=== PATIENT | female | born 1970 | race Caucasian/White ===

== ENCOUNTER 2022-08-27 08:19 | Inpatient (IN) ==
[2022-08-27] MEDS ORDERED: PROCHLORPERAZINE 1 ML IV ONE (08:35)
[2022-08-27] MEDS ORDERED: ALBUT/IPRATROP 3MG/0.5MG NEB 3 ML VIAL NEB ONE (08:35)
[2022-08-27] MEDS ORDERED: ACETAMINOPHEN 1,000 MG/100 ML VIAL IV STA (08:35)
[2022-08-27] MEDS ORDERED: dexAMETHasone**PF** 10 MG/ML VIAL IV ONE (08:35)
[2022-08-27] MEDS ORDERED: SODIUM CHLORIDE 0.9% 500 ML IV ONE (08:35)
[2022-08-27] MEDS ORDERED: diphenhydrAMINE 50 MG/ML VIAL IV STA (08:35)
--- NOTE | 2022-08-27 08:41 | Emergency Department Note ---
Impression & Plan Acute respiratory failure with hypoxia, Migraine ED Provider Note Name: YAS DAUGHERTY Age: 51 Sex: F Arrives Via: Walk-In Informant: Patient ED Provider: Joaquin Michaels MD Chief Complaint: Shortness of breath Impression: As per impressions above Medical Decision Makin-year-old female with a long history of COPD migraine issues arrives for evaluation of worsening shortness of breath over the last few days. She notes increasing migraine over the last 24 hours. Also notes diffuse body pains aches and back pain. On arrival patient is uncomfortable, a bit confused and in significant respiratory distress. She is satting 72% appears quite unwell. She was given a prolonged nebulizer along with IV steroids and was well as some medications for her headache and nausea. Breathing is much improved though after taking off oxygen her sats started dropping again into the 80s. Her work- up otherwise is benign without any clear evidence of sepsis or lobar infiltrate. In the setting of COPD exacerbation with hypoxia she was given some IV antibiotics. She is a bit on the somnolent side but is protecting airway and still continues to complain of backache and headaches. In the setting of her hypoxia and respiratory issues she clearly will need to come in her hospitalization. Patient is agreeable to this and so was patient's family. Symptoms are not consistent with intracranial pathology and she has no evidence of PE or dissection at this time. Given her history of similar I do not think further work-up emergently is required. Prior Medical Record and Triage/Nursing Notes reviewed by Me Additional history obtained from chart and family at bedside Differentials:Infection, dehydration, metabolic abnormality, hypo/hyperglycemia, electrolyte disturbance, anemia, hypoxia, cardiac sources, intracerebral event, toxicologic, neurologic, as well as other pathologies. Vital Signs: reviewed and remarkable for hypoxia Interventions: Decadron IV, Toradol IV, acetaminophen IV, Compazine IV, Phenergan IV, doxycycline IV, normal saline bolus, hour-long DuoNeb Labs:Reviewed and remarkable for no significant abnormalities Imagin view chest x-ray no acute findings EKG:Per My Interpretation: Indication hypoxia: NSR 66 bpm, qtc 429. No Ectopy. No Ischemia. Compared to EKG 04/28/22, no significant changes. Cardiac/Tele Monitoring: Cardiac Monitoring: An Order was placed for continuous cardiac monitoring. The monitor shows a rate of 60 with a normal sinus rhythm. Consults:[facility] Hospitalist Plan: Disposition:Hospitalization. Condition: Good History of Present Illness:51-year-old female arrives for evaluation of headache. Patient with worsening confusion since yesterday. Associated with shortness of breath, wheezing, fatigue. She has been more sleepy over the last 24 hours. She notes she had a worsening headache this morning. She relates this is because she did not have her typical Oxy IR this morning. She denies any falls, trauma, injuries. She is not had any fevers, but is having some chills. She notes her shortness of breath is typical for an asthma flare most recently happened about 6 months ago. Nothing makes better or worse. No medications prior to arrival other than Oxy IR yesterday. Patient denies any actual abdominal pain but notes she is very nauseous. No acute back pain, leg p ain, calf swelling, urinary/bowel symptoms, syncope, neurologic deficits or other concerning signs or symptoms. Any exertion makes worse. Rest makes better. ROS: See above HPI for pertinent positives & negatives. A total of 10 systems reviewed and were otherwise negative. Past Medical History:Asthma, GERD, fibromyalgia, chronic pain, migraines, hypertension Past Surgical History:No previous surgeries Family History:Mother had hypertension Social History:Smoker, lives with family Home Medications:See Below Allergies:novacain Vitals:Blood Pressure: 164/91, Pulse 76, RR 18, T 36.5C, O2 79% on RA Physical Exam: GENERAL: Patient is uncomfortable appearing and in moderate distress. EYES: No scleral icterus, unremarkable pupils. ENT: Mucous membranes moist, no nasal congestion. NECK: No masses appreciated, nomeningismus, trachea is midline. RESPIRATORY: Mild tachypnea with diffuse rhonchi and wheezing throughout all lung hutson. CARDIOVASCULAR: Regular rate and rhythm.No murmurs, rubs, gallops appreciated. GASTROINTESTINAL: Abdomen soft, non-tender, no peritonitis.Bowel sounds positive.No masses appreciated. BACK: No midline tenderness, no CVA tenderness EXTREMITIES: Normal motion all extremities, no cyanosis, no edema. NEUROLOGIC: Somnolent, answering questions with single word answers, no acute motor or sensory deficits, no focal weakness, cranial nerves grossly intact. SKIN: No rash, no jaundice, no diaphoresis. PSYCH: Appropriate GCS: 14 ED Course: Times/Reassessments: breathing improved and patient appears much more comfortable though sats continue to fall in to 80s Joaquin Michaels MD Past Med/Surg History Medical History (Updated 08/27/22 @ 19:20 by Elsy Alvarado PA-C) Chronic pain disorder COPD (chronic obstructive pulmonary disease) Depression Erythrocytosis Fibromyalgia GERD (gastroesophageal reflux disease) History of migraine HTN (hypertension) Tobacco abuse Surgical History (Updated 08/27/22 @ 13:46 by Elsy Alvarado PA-C) History of biopsy biopsy left upper arm - 03/2017 excision tumor left upper arm - 10/29/2017. Dr Griffiths at [facility] Family History (Updated 08/27/22 @ 13:47 by Elsy Alvarado PA-C) Mother Hypertension Father High cholesterol Social History (Updated 08/27/22 @ 13:48 by Elsy Alvarado PA-C) Smoking Status: Current every day smoker Tobacco Type: Cigarettes Cigarettes Per Day: 1ppd; Second Hand Exposure: No; Do You Dip or Chew Tobacco: No; Hx Alcohol Use: Yes Alcohol type: wine Alcohol Intake Frequency: Monthly or Less Hx Substance Use: Yes Prescribed Medications: Painkillers Prescribed Medications Comment: OxyContin, oxycodone Last Used Substance: Unknown Substance Use Type Other:: medical Preferred Language: Telugu Communication Ability: Effective Codifier Required: No Beliefs That Will Affect Care: Moravian Current Living Situation: Family Other Information That Helps Us Care for You: No Feels Safe at Home: Yes Safety Concerns: Feels Safe At This Time Assistive Devices: Glasses and Oxygen - Continuous Allergies Allergies Allergy/AdvReac Type Severity Reaction Status Date / Time procaine [From Novocain] Allergy Severe FACE & Verified 04/28/22 16:43 THROAT SWELLED Home Meds Home Medications Medication Instructions Recorded Confirmed amlodipine 5 mg tablet 5 mg PO DAILY 04/28/22 08/27/22 duloxetine 60 mg capsule,delayed 120 mg PO DAILY 04/28/22 08/27/22 release galcanezumab-gnlm 120 mg/mL 120 mg subcut MONTHLY 04/28/22 08/27/22 subcutaneous pen injector (Emgality Pen) montelukast 10 mg tablet 10 mg PO HS 04/28/22 08/27/22 (Singulair) omeprazole 40 mg capsule,delayed 40 mg PO DAILY 04/28/22 08/27/22 release oxycodone 30 mg tablet 30 mg PO BID PRN Breakthrough Pain 04/28/22 08/27/22 pregabalin 75 mg capsule 75 mg PO TID 04/28/22 08/27/22 propranolol 120 mg capsule,24 120 mg PO DAILY 04/28/22 08/27/22 hr,extended release sumatriptan succinate 100 mg tablet 100 mg PO UD PRN Headache 04/28/22 08/27/22 valacyclovir 1 gram tablet 1,000 mg PO UD 04/28/22 08/27/22 ipratropium 20 mcg-albuterol 100 2 puff inhalation Q6H PRN 08/27/22 08/27/22 mcg/actuation mist for inhalation Shortness Of Breath Or Wheezing (Combivent Respimat) oxycodone 60 mg tablet,crush 60 mg PO BID 08/27/22 08/27/22 resistant,extended release 12 hr (OxyContin) Previous Rx's Medication Instructions Recorded ondansetron 4 mg disintegrating 4 mg PO Q6H PRN nausea and 04/28/22 tablet vomiting #14 tabs Results & Data (ED) Vital Signs Vital Signs - 24 hr 08/27/22 08:22 08/27/22 08:19 08/27/22 08:35 Temperature 36.5 C Temperature Source Temporal Artery Scan Pulse Rate 76 Pulse Rate [Finger] 74 Pulse Rate from SpO2 Sensor Respiratory Rate 18 24 Respiratory Effort / Characteristics Non-Labored Spontaneous Respiratory Depth Normal Respiratory Pattern Regular Blood Pressure 164/91 H Blood Pressure [Right Arm] 186/105 H Blood Pressure Mean 115 Blood Pressure Mean [Right Arm] 132 Blood Pressure Position [Right Arm] Sitting Pulse Oximetry 79 L 95 95 Oxygen Delivery Method Room Air Oxymask Oxymask Oxygen Flow Rate 6 6 Sepsis Recent Fever Within 48 Hours No Sepsis New/Unexplained Change in Mental Status No Sepsis Action Taken by Nursing No Action Required 08/27/22 10:02 08/27/22 10:40 08/27/22 10:40 Temperature Temperature Source Pulse Rate 73 84 81 Pulse Rate [Finger] Pulse Rate from SpO2 Sensor 80 Respiratory Rate 24 23 13 Respiratory Effort / Characteristics Respiratory Depth Respiratory Pattern Blood Pressure 161/109 H 162/92 H Blood Pressure [Right Arm] Blood Pressure Mean 126 115 Blood Pressure Mean [Right Arm] Blood Pressure Position [Right Arm] Pulse Oximetry 92 95 96 Oxygen Delivery Method Oxymask Oxymask Oxymask Oxygen Flow Rate 6 6 6 Sepsis Recent Fever Within 48 Hours Sepsis New/Unexplained Change in Mental Status Sepsis Action Taken by Nursing 08/27/22 11:00 08/27/22 11:00 08/27/22 11:40 Temperature Temperature Source Pulse Rate 77 73 75 Pulse Rate [Finger] Pulse Rate from SpO2 Sensor 74 76 Respiratory Rate 22 22 25 H Respiratory Effort / Characteristics Respiratory Depth Respiratory Pattern Blood Pressure 166/91 H 166/91 H 166/99 H Blood Pressure [Right Arm] Blood Pressure Mean 116 116 121 Blood Pressure Mean [Right Arm] Blood Pressure Position [Right Arm] Pulse Oximetry 95 93 90 Oxygen Delivery Method Oxymask Oxymask Oxymask Oxygen Flow Rate 6 6 6 Sepsis Recent Fever Within 48 Hours Sepsis New/Unexplained Change in Mental Status Sepsis Action Taken by Nursing 08/27/22 12:00 08/27/22 12:30 Temperature Temperature Source Pulse Rate 81 75 Pulse Rate [Finger] Pulse Rate from SpO2 Sensor Respiratory Rate 24 24 Respiratory Effort / Characteristics Respiratory Depth Respiratory Pattern Blood Pressure 171/98 H 159/99 H Blood Pressure [Right Arm] Blood Pressure Mean 122 119 Blood Pressure Mean [Right Arm] Blood Pressure Position [Right Arm] Pulse Oximetry 91 92 Oxygen Delivery Method Oxymask Oxymask Oxygen Flow Rate 6 6 Sepsis Recent Fever Within 48 Hours Sepsis New/Unexplained Change in Mental Status Sepsis Action Taken by Nursing Laboratory Data Result diagrams: 08/28/22 03:57 08/28/22 03:57 Lab Results 08/27/22 08/27/22 08/27/22 Range/Units 08:40 08:40 08:40 WBC 11.59 H (4.8-10.8) K/ul RBC 5.51 H (3.93-5.22) M/uL Hgb 19.5 H (12.0-16.0) g/dl Hct 58.9 H (34.1-44.9) % MCV 106.9 H (80.0-100.0) fL MCH 35.4 H (25.0-34.0) pg MCHC 33.1 (32.0-36.0) g/dL RDW Std Deviation 55.7 H (36.4-46.3) fL RDW Coeff of Devora 13.8 (11.5-14.5) % Plt Count 195 (130-400) K/uL MPV 10.7 (9.4-12.3) fL Immature Gran % (Auto) 0.3 % Neut % (Auto) 80.1 % Lymph % (Auto) 11.6 % [place] % (Auto) 7.2 % Eos % (Auto) 0.3 % Baso % (Auto) 0.5 % Neut # (Auto) 9.28 H (1.4-6.5) K/uL Lymph # (Auto) 1.34 (1.2-3.4) K/uL [place] # (Auto) 0.83 H (0.24-0.82) K/uL Eos # (Auto) 0.04 (0-0.50) K/uL Baso # (Auto) 0.06 (0-0.2) K/uL Immature Gran # (Auto) 0.04 H (0.00-0.02) K/uL Sodium 142 (136-145) mmol/L Potassium 4.0 (3.5-5.1) mmol/L Chloride 101 (98-107) mmol/L Carbon Dioxide 31 (21-32) mmol/L Anion Gap 10 (3-11) BUN 14 (6-23) mg/dl Creatinine 0.58 L (0.6-1.2) mg/dl Est Cr Clr Drug Dosing 113.7 ml/min Est GFR ( Amer) 123.7 ml/min Est GFR (Non-Af Amer) 106.7 ml/min BUN/Creatinine Ratio 24.1 H (10-20) Glucose 128 H (70-99(Fasting)) mg/dl Lactate 1.2 (0.4-2.0) mmol/L Calcium 9.4 (8.5-10.1) mg/dl Magnesium 1.9 (1.7-2.4) mg/dl Total Bilirubin 1.3 H (0.2-1.0) mg/dl Direct Bilirubin 0.3 H (0-0.2) mg/dl AST 17 (13-39) U/L ALT 13 (7-52) U/L Alkaline Phosphatase 67 (34-104) U/L Troponin I High Sens 10.3 D (0-14) pg/ml B-Natriuretic Peptide (0-100) pg/ml Total Protein 6.8 (6.0-8.3) gm/dl Albumin 4.3 (3.4-5.0) gm/dl Procalcitonin (0-0.5) ng/ml SARS-CoV-2 (PCR) (Negative) Influenza Type A (PCR) (Neg) Influenza Type B (PCR) (Neg) RSV (RT-PCR) (Neg) 08/27/22 08/27/22 08/27/22 Range/Units 08:40 08:40 09:00 WBC (4.8-10.8) K/ul RBC (3.93-5.22) M/uL Hgb (12.0-16.0) g/dl Hct (34.1-44.9) % MCV (80.0-100.0) fL MCH (25.0-34.0) pg MCHC (32.0-36.0) g/dL RDW Std Deviation (36.4-46.3) fL RDW Coeff of Devora (11.5-14.5) % Plt Count (130-400) K/uL MPV (9.4-12.3) fL Immature Gran % (Auto) % Neut % (Auto) % Lymph % (Auto) % [place] % (Auto) % Eos % (Auto) % Baso % (Auto) % Neut # (Auto) (1.4-6.5) K/uL Lymph # (Auto) (1.2-3.4) K/uL [place] # (Auto) (0.24-0.82) K/uL Eos # (Auto) (0-0.50) K/uL Baso # (Auto) (0-0.2) K/uL Immature Gran # (Auto) (0.00-0.02) K/uL Sodium (136-145) mmol/L Potassium (3.5-5.1) mmol/L Chloride (98-107) mmol/L Carbon Dioxide (21-32) mmol/L Anion Gap (3-11) BUN (6-23) mg/dl Creatinine (0.6-1.2) mg/dl Est Cr Clr Drug Dosing ml/min Est GFR ( Amer) ml/min Est GFR (Non-Af Amer) ml/min BUN/Creatinine Ratio (10-20) Glucose (70-99(Fasting)) mg/dl Lactate (0.4-2.0) mmol/L Calcium (8.5-10.1) mg/dl Magnesium (1.7-2.4) mg/dl Total Bilirubin (0.2-1.0) mg/dl Direct Bilirubin (0-0.2) mg/dl AST (13-39) U/L ALT (7-52) U/L Alkaline Phosphatase (34-104) U/L Troponin I High Sens (0-14) pg/ml B-Natriuretic Peptide 754 H (0-100) pg/ml Total Protein (6.0-8.3) gm/dl Albumin (3.4-5.0) gm/dl Procalcitonin < 0.05 (0-0.5) ng/ml SARS-CoV-2 (PCR) NEGATIVE (Negative) Influenza Type A (PCR) Negative (Neg) Influenza Type B (PCR) Negative (Neg) RSV (RT-PCR) Negative (Neg) Administered Medications Albuterol (Albut/Ipratrop 3mg/0.5mg Neb 3 Ml Vial) 3 ml NEB QIDR [facility]; Protocol Stop: 09/26/22 15:24 Last Admin: 08/27/22 19:35 Dose: 3 ml Documented By: Admin: 08/27/22 16:18 Dose: 3 ml Documented By: [facility] Amlodipine Besylate (Amlodipine Besylate 5 Mg Tab) 5 mg PO DAILY [facility] Stop: 09/26/22 15:24 Last Admin: 08/27/22 16:07 Dose: 5 mg Documented By: [facility] Docusate Sodium (Docusate Sodium 100 Mg Cap) 100 mg PO BID [facility] Stop: 09/26/22 20:59 Last Admin: 08/27/22 21:32 Dose: Not Given Documented By: [facility] Doxycycline Hyclate (Doxycycline Hyclate 100 Mg Cap) 100 mg PO BID [facility] Stop: 09/03/22 20:59 Last Admin: 08/27/22 21:30 Dose: 100 mg Documented By: [facility] Enoxaparin Sodium (Enoxaparin Inj 40 Mg/0.4 Ml Syr) 40 mg SQ Q24H [facility] Stop: 09/26/22 20:59 Last Admin: 08/27/22 21:30 Dose: 40 mg Documented By: [facility] Methylprednisolone 40 mg/ (Syringe) 0.64 mls @ 1.5 mls/min IV Q12H SAM Stop: 09/26/22 20:59 Last Admin: 08/27/22 21:29 Dose: 1.5 mls/min Documented By: LISA Montelukast Sodium (Montelukast Sodium 10 Mg Tablet) 10 mg PO HS SAM Stop: 09/26/22 20:59 Last Admin: 08/27/22 21:31 Dose: 10 mg Documented By: LISA Nicotine (Nicotine 21 Mg/24 Hr Tdsy) 21 mg TD QAM SAM Stop: 09/26/22 15:24 Last Admin: 08/27/22 16:04 Dose: 21 mg Documented By: MARYSOL Oxycodone HCl (Oxycodone Hcl 15 Mg Tabcr (Oxycontin)) 15 mg PO BID SAM Stop: 09/10/22 20:59 Last Admin: 08/27/22 21:38 Dose: 15 mg Documented By: LISA Pregabalin (Pregabalin 75 Mg Cap) 75 mg PO TID SAM Stop: 09/26/22 15:24 Last Admin: 08/27/22 21:35 Dose: 75 mg Documented By: Admin: 08/27/22 16:18 Dose: 75 mg Documented By: MARYSOL Propranolol HCl (Propranolol Hcl 60 Mg [place]) 120 mg PO DAILY SAM Stop: 09/26/22 15:24 Last Admin: 08/27/22 16:05 Dose: 120 mg Documented By: MARYSOL Discontinued Medications Albuterol (Albut/Ipratrop 3mg/0.5mg Neb 3 Ml Vial) 12 ml NEB ONE ONE; Protocol Stop: 08/27/22 08:36 Last Admin: 08/27/22 08:50 Dose: 12 ml Documented By: LYNNETTE Dexamethasone Sodium Phosphate (DexamethasonePf 10 Mg/Ml Vial) 10 mg IV NOW ONE Stop: 08/27/22 08:36 Last Admin: 08/27/22 08:49 Dose: 10 mg Documented By: LYNNETTE Diphenhydramine HCl (Diphenhydramine 50 Mg/Ml Vial) 50 mg IV NOW STA Stop: 08/27/22 08:36 Last Admin: 08/27/22 08:49 Dose: 50 mg Documented By: [facility] Hydromorphone HCl (Hydromorphone Inj 0.5 Mg/0.5 Ml Syr) 0.5 mg IV NOW STA Stop: 08/27/22 11:33 Last Admin: 08/27/22 12:20 Dose: Not Given Documented By: HERMILA Sodium Chloride (Nss) 500 mls @ 999 mls/hr IV .Q31M ONE Stop: 08/27/22 09:05 Last Infusion: 08/27/22 09:21 Dose: 0 mls/hr Documented By: Admin: 08/27/22 08:50 Dose: 999 mls/hr Documented By: MARYSOL Acetaminophen (Ofirmev) 1,000 mg in 100 mls @ 400 mls/hr IV NOW STA Stop: 08/27/22 08:49 Last Infusion: 08/27/22 09:06 Dose: 0 mls/hr Documented By: Admin: 08/27/22 08:51 Dose: 400 mls/hr Documented By: MARYSOL Prochlorperazine (Compazine) 1 mls @ 1 mls/min IV ONE ONE Stop: 08/27/22 08:36 Last Admin: 08/27/22 08:49 Dose: 1 mls/min Documented By: MARYSOL Promethazine HCl (Phenergan) 25 mg in 51 mls @ 204 mls/hr IV NOW STA Stop: 08/27/22 10:37 Last Infusion: 08/27/22 11:02 Dose: 0 mls/hr Documented By: Admin: 08/27/22 10:38 Dose: 204 mls/hr Documented By: HERMILA Doxycycline Hyclate 100 mg/ (Dextrose) 110 mls @ 50 mls/hr IV NOW STA Stop: 08/27/22 13:43 Last Infusion: 08/27/22 14:16 Dose: 0 mls/hr Documented By: Admin: 08/27/22 11:53 Dose: 50 mls/hr Documented By: MARYSOL Discharge Plan Visit Data Chief Complaint: Headache Stated Complaint: HEADACHE ED Provider: Joaquin Michaels Discharge Problem: Acute respiratory failure with hypoxia, Migraine Patient Disposition: Admitted As Inpatient Discharge Instructions Interventions: ED Discharge Assessment Last Done: 08/27/22 15:24 : Migraine Qualifiers: Migraine type: other Status migrainosus presence: without status migrainosus Intractability: not intractable Qualified Code(s): G43.809 - Other migraine, not intractable, without status migrainosus
[2022-08-27 08:54] LABS: Basophils # (auto) 0.06 K/uL (0-0.2); Basophils % (auto) 0.5 %; Eosinophils # (auto) 0.04 K/uL (0-0.50); Eosinophils % (auto) 0.3 %; Hematocrit (blood only) 58.9 % (34.1-44.9); Hemoglobin 19.5 g/dl (12.0-16.0); Immature Granulocytes # (auto) 0.04 K/uL (0.00-0.02); Immature Granulocytes % (auto) 0.3 %; Lymphocytes # (auto) 1.34 K/uL (1.2-3.4); Lymphocytes % (auto) 11.6 %; Mean Corpuscular Hemoglobin 35.4 pg (25.0-34.0); Mean Corpuscular Hgb Conc 33.1 g/dL (32.0-36.0); Mean Corpuscular Volume 106.9 fL (80.0-100.0); Mean Platelet Volume 10.7 fL (9.4-12.3); Monocytes # (auto) 0.83 K/uL (0.24-0.82); Monocytes % (auto) 7.2 %; Neutrophils # (auto) 9.28 K/uL (1.4-6.5); Neutrophils % (auto) 80.1 %; Platelet Count 195 K/uL (130-400); RDW Coefficient of Variation 13.8 % (11.5-14.5); RDW Standard Deviation 55.7 fL (36.4-46.3); Red Blood Count 5.51 M/uL (3.93-5.22); White Blood Count 11.59 K/ul (4.8-10.8)
--- NOTE | 2022-08-27 09:21 | XRay Report ---
SINGLE VIEW CHEST CLINICAL HISTORY: Cough. Sepsis. FINDINGS: An AP, portable, upright chest radiograph is compared to chest x-ray and chest CT dated 04/05. The cardiomediastinal silhouette is top normal for projection. Emphysema and chronic intersti tial thickening is similar to previous. There are mild bibasilar airspace opacities. No pleural effus ion or pneumothorax is seen. The bony thorax is grossly intact. Fusion hardware is seen in the lower cervical spine. IMPRESSION: 1. Emphysema. 2. Mild bibasilar airspace opacities could represent atelectasis versus a mild infectious/inflammator y pneumonitis. Clinical correlation will be required ACT 112: Negative or not required by law. Electronically signed by: Colby Jenkins M.D. 08/27/2022 9:20 AM
[2022-08-27 09:24] LABS: Troponin I High Sensitivity 10.3 pg/ml (0-14)
[2022-08-27 09:35] LABS: Influenza A virus by PCR Negative (Neg); Influenza B virus by PCR Negative (Neg); RSV by PCR Negative (Neg); SARS CoV2 RNA(COVID-19) Ceph NEGATIVE (Negative)
[2022-08-27 09:45] LABS: Albumin Level 4.3 gm/dl (3.4-5.0); BUN Creatinine Ratio 24.1 (10-20); Bilirubin Direct 0.3 mg/dl (0-0.2); Bilirubin,Total 1.3 mg/dl (0.2-1.0); Calcium 9.4 mg/dl (8.5-10.1); Creatinine Clr Calc Pharmacy 113.7 ml/min; Est GFR (African American) 123.7 ml/min; Est GFR (Non-African American) 106.7 ml/min; Magnesium 1.9 mg/dl (1.7-2.4); Total Protein 6.8 gm/dl (6.0-8.3)
[2022-08-27] MEDS ORDERED: PROMETHAZINE 25 MG/51 ML BAG IV STA (10:23)
[2022-08-27] MEDS ORDERED: DOXYCYCLINE HYCLATE 100 MG in DEXTROSE 5% 100 ML IV STA (11:32)
[2022-08-27] MEDS ORDERED: HYDROmorphone INJ 0.5 MG/0.5 ML SYR IV STA (11:32)
--- NOTE | 2022-08-27 12:32 | History & Physical Report ---
Date of Service August 27, 2022 Assessment & Plan (1) Headache: (2) Migraine: Plan: Patient is 51-year-old female with PMH fibromyalgia, chronic pain syndrome, migraine GONZÁLES, tobacco abuse, erythrocytosis, HTN, depression, GERD presented to ER with c/o GONZÁLES x 1 day with photophobia, phonophobia, N/V, diplopia. Took ibuprofen and imitrex without relief. In ER given ER IV Tylenol, Compazine, Benadryl, Phenergan, Dilaudid Patient reports continued headache. Is noted to have confusion CT head negative Can have additional dose Imitrex. Start Toradol prn Hold home OxyContin with current confusion. Decrease home dose of oxycodone from 30 to 15mg BID and monitor If no improvement consider neurology consult (3) Hypoxia: (4) COPD exacerbation: Plan: In ER patient found to be hypoxic on room air at 79%. Increased to 95% on 6L oxymask Reports chronic white productive cough without worsening. Reports SOB x 1 day. Denies CP WBC: 11.5, Lactate WNL, negative procalcitonin. Negative Covid-19, influenza and RSV PCR. CXR: Emphysema. Mild bibasilar airspace opacities could represent atelectasis versus a mild infectious/inflammatory pneumonitis. Clinical correlation will be required In ER given dexamethasone 10mg IV, doxycycline IV, albuterol neb Obtain ABG Of note - pt hypoxic in ER visit in 04/2022. Suspect chronic respiratory failure Supplemental oxygen as needed goal 89-90% Duonebs Doxycycline po incentive spirometry Continue home montelukast (5) Abnormal EKG: Plan: EKG inverted T waves septal, V3. Q waves septal and inferior that were seen on prior EKG Denies CP. High sensitivity Troponin: 10 Trend troponin EKG in am (6) HTN (hypertension): Plan: Continue amlodipine, propranolol (7) Chronic pain disorder: (8) Fibromyalgia: Plan: PDMP reviewed. oxycodone 30 mg tablets quantity 60 filled on 08/19/2022. OxyContin ER 60 mg Quantity 60 filled on 08/25/2022. Pregabalin 75 mg capsules. Quantity 90. Filled on 08/22/2022. Urine drug screen +opiates, +marijuana Hold home OxyContin currently with confusion Decrease dose of home oxycodone from 30mg to 15mg BID with current confusion (9) Depression: Plan: Continue duloxetine (10) GERD (gastroesophageal reflux disease): Plan: Continue PPI (11) Tobacco abuse: Plan: Smoking cessation encouraged Nicotine patch (12) Erythrocytosis: Plan: Following with [facility]. Negative gen panel so polycythemia vera unlikely Was to have sleep study to R/O ALEKSANDR. Has not had completed yet DVT Prophylaxis Lovenox SQ Full Code as per discussion with pt Follows with Dr Angelica Green in [place] for routine care Pt was seen and care coordinated with Dr Auguste. See addendum Admission and Anticipated Discharge Date Admission Date: Patient is a 51-year-old female with history of migraine, fibromyalgia and other medical problems presents with history of headache, photophobia, phonophobia, nausea. She states having diplopia with migraine attacks. She tried ibuprofen, Imitrex without much relief. Patient was also noted to be confused by family member and feels short of breath for 1 day duration. Reports chronic cough which she attributes to smoking. She is on chronic narcotics. Please review HPI for complete details of presentation. She was found to be hypoxic while in ED. Blood work showed leukocytosis 11.5, hemoglobin 19.5, hematocrit 58.9 platelet count 195. BMP within normal limit. Troponins normal. BNP 754. Procalcitonin normal. Tox screen positive for opiates, marijuana. COVID, RSV, influenza screen negative. Chest x-ray showed findings suggestive of emphysema, mild bibasilar airspace opacities.CT head showed no acute intracranial abnormality. Blood cultures pending. EKG showed normal sinus rhythm, T wave inversion in V2, V3. QTc 429. On exam patient is moderately built and nourished, no apparent distress, normocephalic/atraumatic, EOMI, diminished breath sounds, clear to auscultation, S1-S2, no murmur, no pedal edema, abdomen soft, nontender, normal bowel sounds, alert, awake, lethargic, grossly no focal deficits. Patient is admitted for management of migraine, acute respiratory failures with hypoxia, hypercarbia. Likely COPD exacerbation. Narcotics likely contributing to respiratory status. Will treat COPD exacerbation and minimize narcotic use as able. Trend cardiac enzymes and repeat EKG to assess for any ACS--less likely. Continue treatment for migraine as above. 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 I personally reviewed the record. Patient is interviewed and examined at bedside. Patient's care is coordinated with Elsy Alvarado PA-C. Please refer to the documentation above for details of patient's presentation and for discussion of other issues. History of Present Illness Chief Complaint: GONZÁLES Primary Care Provider: Dr Angelica Green Patient is 51-year-old female with PMH fibromyalgia, chronic pain syndrome, migraine GONZÁLES, tobacco abuse, erythrocytosis, HTN, depression, GERD presented to ER with c/o GONZÁLES. History obtained from patient, patient's daughter, and chart review. Patient states that GONZÁLES started last night. Describes as occipital region with associated photophobia, phonophobia, nausea and dry heaving. Also c/o diplopia which is normal when she has GONZÁLES's. She feels like this is like her prior GONZÁLES's. Also states feels generalized weakness. Tried ibuprofen, Imitrex this morning without relief and can to ER. Patients daughter states she seems confused today. Reports feeling SOB x 1 day. Chronic cough, sometimes productive white sputum without recent worsening. Reports feels cold but denies known fever. Denies chest pain. On chronic OxyContin and oxycodone. Daughter does not believe patient had narcotics today, but thinks took yesterday. Patient states ran out of oxycodone, however patient's daughter states she thought someone picked it up from the pharmacy for patient. Patient states she is having a hard time remembering. Denies fever/chills, diaphoresis, hemoptysis, hematemesis, constipation, diarrhea, syncope, vision loss, neck pain, orthopnea, palpitations, sore throat, choking, otalgia, rhinorrhea, abdominal pain, pa resthesias, extremity edema, rashes, urinary symptoms. Denies other drug use. PDMP reviewed. oxycodone 30 mg tablets quantity 60 filled on 08/19/2022. OxyContin ER 60 mg Quantity 60 filled on 08/25/2022. Pregabalin 75 mg capsules. Quantity 90. Filled on 08/22/2022. Oxycodone 30 mg tab quantity 60 filled on 08/19/2022. OxyContin ER 60 mg tablet. Quantity 11 filled on 08/14/2022 and 08/07/2022. Allergies Allergy/AdvReac Type Severity Reaction Status Date / Time procaine [From Novocain] Allergy Severe FACE & Verified 04/28/22 16:43 THROAT SWELLED Home Medications Medication Instructions Recorded Confirmed Type amlodipine 5 mg tablet 5 mg PO DAILY 04/28/22 08/27/22 History duloxetine 60 mg capsule,delayed 120 mg PO DAILY 04/28/22 08/27/22 History release galcanezumab-gnlm 120 mg/mL 120 mg subcut MONTHLY 04/28/22 08/27/22 History subcutaneous pen injector (Emgality Pen) montelukast 10 mg tablet 10 mg PO HS 04/28/22 08/27/22 History (Singulair) omeprazole 40 mg capsule,delayed 40 mg PO DAILY 04/28/22 08/27/22 History release ondansetron 4 mg disintegrating 4 mg PO Q6H PRN nausea and 04/28/22 08/27/22 Rx tablet vomiting #14 tabs oxycodone 30 mg tablet 30 mg PO BID PRN Breakthrough Pain 04/28/22 08/27/22 History pregabalin 75 mg capsule 75 mg PO TID 04/28/22 08/27/22 History propranolol 120 mg capsule,24 120 mg PO DAILY 04/28/22 08/27/22 History hr,extended release sumatriptan succinate 100 mg tablet 100 mg PO UD PRN Headache 04/28/22 08/27/22 History valacyclovir 1 gram tablet 1,000 mg PO UD 04/28/22 08/27/22 History ipratropium 20 mcg-albuterol 100 2 puff inhalation Q6H PRN 08/27/22 08/27/22 History mcg/actuation mist for inhalation Shortness Of Breath Or Wheezing (Combivent Respimat) oxycodone 60 mg tablet,crush 60 mg PO BID 08/27/22 08/27/22 History resistant,extended release 12 hr (OxyContin) Past Med/Surg History Medical History (Updated 08/27/22 @ 19:20 by Elsy Alvarado PA-C) Chronic pain disorder COPD (chronic obstructive pulmonary disease) Depression Erythrocytosis Fibromyalgia GERD (gastroesophageal reflux disease) History of migraine HTN (hypertension) Tobacco abuse Surgical History (Updated 08/27/22 @ 13:46 by Elsy Alvarado PA-C) History of biopsy biopsy left upper arm - 03/2017 excision tumor left upper arm - 10/29/2017. Dr Griffiths [place] [facility] [place] Family History (Updated 08/27/22 @ 13:47 by Elsy Alvarado PA-C) Mother Hypertension Father High cholesterol Social History (Updated 08/27/22 @ 13:48 by Elsy Alvarado PA-C) Smoking Status: Current every day smoker Tobacco Type: Cigarettes Cigarettes Per Day: 1ppd; Second Hand Exposure: No; Do You Dip or Chew Tobacco: No; Hx Alcohol Use: Yes Alcohol type: wine Alcohol Intake Frequency: Monthly or Less Hx Substance Use: Yes Prescribed Medications: Painkillers Prescribed Medications Comment: OxyContin, oxycodone Last Used Substance: Unknown Substance Use Type Other:: medical Preferred Language: Mongolian Communication Ability: Effective Outdoor Advertising Leasing Agent Required: No Beliefs That Will Affect Care: Lutheran Current Living Situation: Family Other Information That Helps Us Care for You: No Feels Safe at Home: Yes Safety Concerns: Feels Safe At This Time Assistive Devices: Glasses and Oxygen - Continuous Review of Systems Review of Systems: All systems reviewed & are unremarkable except as noted in HPI & below Physical Exam Physical Exam: General: no distress, WDWN Head: normocephalic, atraumatic Eyes: PERRL, EOM's intact, conjunctiva non-injected, anicteric ENT: normal inspection external ears, nose, mucous membranes moist Neck: supple, trachea midline Lungs: patient with poor respiratory effort, diminished breath sounds, otherwise appear clear, no respiratory distress on current 6L oxymask CV: RRR, no JVD, no pretibial edema Abd: normal BS, soft, non-tender Ext: no cyanosis, no calf tenderness Neuro: Alert, oriented to person, place, thinks its day. no focal deficits noted, normal affect Skin: warm, dry Results & Data Results & Data ([facility]) Vital Signs (Past 12 Hours) Vital Signs Temp Pulse Pulse Resp BP BP Pulse Ox 08/27/22 12:00 81 24 171/98 H 91 08/27/22 11:40 75 25 H 166/99 H 90 08/27/22 11:00 73 22 166/91 H 93 08/27/22 11:00 77 22 166/91 H 95 08/27/22 10:40 81 13 96 08/27/22 10:40 84 23 162/92 H 95 08/27/22 10:02 73 24 161/109 H 92 08/27/22 08:35 95 08/27/22 08:19 74 24 186/105 H 95 08/27/22 08:22 36.5 C 76 18 164/91 H 79 L O2 Del Method O2 Flow Rate 08/27/22 12:00 Oxymask 6 08/27/22 11:40 Oxymask 6 08/27/22 11:00 Oxymask 6 08/27/22 11:00 Oxymask 6 08/27/22 10:40 Oxymask 6 08/27/22 10:40 Oxymask 6 08/27/22 10:02 Oxymask 6 08/27/22 08:35 Oxymask 6 08/27/22 08:19 Oxymask 6 08/27/22 08:22 Room Air Laboratory Results Short CBC 08/27/22 Range/Units 08:40 WBC 11.59 H (4.8-10.8) K/ul Hgb 19.5 H (12.0-16.0) g/dl Hct 58.9 H (34.1-44.9) % Plt Count 195 (130-400) K/uL BMP 08/27/22 08:40 Sodium 142 Potassium 4.0 Chloride 101 Carbon Dioxide 31 BUN 14 Creatinine 0.58 L Glucose 128 H Calcium 9.4 Liver Function 08/27/22 Range/Units 08:40 Total Bilirubin 1.3 H (0.2-1.0) mg/dl Direct Bilirubin 0.3 H (0-0.2) mg/dl AST 17 (13-39) U/L ALT 13 (7-52) U/L Alkaline Phosphatase 67 (34-104) U/L Albumin 4.3 (3.4-5.0) gm/dl Urine 08/27/22 Range/Units 13:16 Urine Color Yellow Urine Appearance Clear (Clear) Urine pH 6.5 (4.5-7.5) Ur Specific [place] 1.008 (1.000-1.030) Urine Protein Negative (Negative) Urine Glucose (UA) Negative (Negative) Diagnostic Findings Chest X-Ray 08/27/22 08:35 SINGLE VIEW CHEST CLINICAL HISTORY: Cough. Sepsis. FINDINGS: An AP, portable, upright chest radiograph is compared to chest x-ray and chest CT dated 04/28/2022. The cardiomediastinal silhouette is top normal for projection. Emphysema and chronic interstitial thickening is similar to previous. There are mild bibasilar airspace opacities. No pleural effusion or pneumothorax is seen. The bony thorax is grossly intact. Fusion hardware is seen in the lower cervical spine. IMPRESSION: 1. Emphysema. 2. Mild bibasilar airspace opacities could represent atelectasis versus a mild infectious/inflammatory pneumonitis. Clinical correlation will be required ACT 112: Negative or not required by law. Electronically signed by: Colby Jenkins M.D. 08/27/2022 9:[address] 08/27/22 13:10 CT head/brain wo con CLINICAL HISTORY: GONZÁLES Technique: Contiguous axial CT images of the head were acquired from the base of the skull to the vertex without intravenous contrast administration. Images were viewed in brain, subdural and bone windows. Automated dose lowering techniques and/or adjustment according to patient size were utilized for this exam. Comparison: Comparison is made to CT head 04/28/2022 Findings: The ventricles, basal cisterns, and cerebral sulci are normal. There is no acute intracranial hemorrhage or evidence of acute territorial infarction. Neither mass effect, shift of the midline structures, nor abnormal extra-axial fluid collections are shown. Imaged portions of the paranasal sinuses and mastoid air cells are clear. The orbits appear normal. There are no acute fractures of the calvaria or scalp swelling. Impression: No acute intracranial hemorrhage, no evidence of acute territorial infarction or other acute intracranial disease process. ACT 112: Negative or not required by law. Electronically signed by: Brayan Cisse M.D. 08/27/2022 1:55 PM ECG Rate (beats per minute): 66 Rhythm: sinus rhythm Findings: + Q waves (Septal, anterior) and + T-wave inversion (septal, V3) Comparison ECG Date: from (04/28/22. Q waves in septal and anterior) (1) Migraine Intractability: not intractable Migraine type: other Status migrainosus p resence: without status migrainosus Qualified Code(s): G43.809 - Other migraine, not intractable, without status migrainosus
[2022-08-27 13:26] LABS: Appearance Urine Clear (Clear); Bilirubin Urine Negative (Negative); Blood Urine Negative (Negative); Color Urine Yellow; Glucose Urine UA Negative (Negative); Ketones Urine 1+ (Negative); Leukocyte Esterase Urine Negative (Negative); Nitrite Urine Negative (Negative); Protein Urine Negative (Negative); Specific Gravity Urine 1.008 (1.000-1.030); Urobilinogen Urine Negative (Negative); pH Urine 6.5 (4.5-7.5)
--- NOTE | 2022-08-27 13:57 | CT Scan Report ---
CT head/brain wo con CLINICAL HISTORY: GONZÁLES Technique: Contiguous axial CT images of the head were acquired from the base of the skull to the shauna moy without intravenous contrast administration. Images were viewed in brain, subdural and [facility]. Automated dose lowering techniques and/or adjustment according to patient size were utilized for this exam. Comparison: Comparison is made to CT head 04/28/2022 Findings: The ventricles, basal cisterns, and cerebral sulci are normal. There is no acute intracranial hemorrh age or evidence of acute territorial infarction. Neither mass effect, shift of the midline structures , nor abnormal extra-axial fluid collections are shown. Imaged portions of the paranasal sinuses and mastoid air cells are clear. The orbits appear normal. There are no acute fractures of the calvaria or scalp swelling. Impression: No acute intracranial hemorrhage, no evidence of acute territorial infarction or other acute intracra nial disease process. ACT 112: Negative or not required by law. Electronically signed by: Brayan Cisse M.D. 08/27/2022 1:55 PM
[2022-08-27 14:02] LABS: Base Excess ABG 6.3 mEq/L (-9-1.8); HCO3 ABG 33 mmol/L (19-24); Oxygen Saturation ABG 96.4 % (90-95); PCO2 ABG 52 mmHg (35-46); PO2 ABG 76 mmHg (80-95); pH ABG 7.41 (7.35-7.45)
[2022-08-27 14:05] LABS: Allen Test Pos (Pos)
[2022-08-27 14:10] LABS: Amphetamines+Metham, Urine Neg (Neg); Barbiturates, Urine Neg (Neg); Benzodiazepine, Urine Neg (Neg); Cocaine, Urine Neg (Neg); MDMA (Ecstacy), Urine Neg (Neg); Methadone, Urine Neg (Neg); Opiate, Urine Pos (Neg); Phencyclidine, Urine Neg (Neg)
[2022-08-27] MEDS ORDERED: ONDANSETRON INJ 2 MG/ML 2 ML VIAL IV PRN (15:25)
[2022-08-27] MEDS ORDERED: KETOROLAC TROMETHAMINE 10 MG TABLET PO PRN (15:25)
[2022-08-27] MEDS ORDERED: ACETAMINOPHEN 325 MG TAB PO PRN (15:25)
[2022-08-27] MEDS ORDERED: SUMAtriptan succinate 100 MG TAB PO PRN (15:25)
[2022-08-27] MEDS ORDERED: POLYETHYLENE (MIRALAX) 17 GM PACK PO PRN (15:25)
[2022-08-27] MEDS: NICOTINE 21 MG/24 HR TDSY TD SCH (16:04)
[2022-08-27] MEDS: PROPRANOLOL HCL 60 MG LA CAP PO SCH (16:05)
[2022-08-27] MEDS: amLODIPine BESYLATE 5 MG TAB PO SCH (16:07)
[2022-08-27] MEDS: PREGABALIN 75 MG CAP PO SCH ×2 (16:18→21:35)
[2022-08-27] MEDS: ALBUT/IPRATROP 3MG/0.5MG NEB 3 ML VIAL NEB SCH ×2 (16:18→19:35)
[2022-08-27] MEDS ORDERED: MONTELUKAST SODIUM 10 MG TABLET PO SCH (21:00)
[2022-08-27] MEDS ORDERED: ENOXAPARIN INJ 40 MG/0.4 ML SYR SQ SCH (21:00)
[2022-08-27] MEDS: methylPREDNISolone 40 MG in SYRINGE 0 ML IV SCH (21:29)
[2022-08-27] MEDS: DOXYCYCLINE HYCLATE 100 MG CAP PO SCH (21:30)
[2022-08-27] MEDS: DOCUSATE SODIUM 100 MG CAP PO SCH (21:32)
[2022-08-27] MEDS: oxyCODONE HCL 15 MG TABCR (OxyCONTIN) PO SCH (21:38)
[2022-08-28 04:24] LABS: Basophils # (auto) 0.02 K/uL (0-0.2); Basophils % (auto) 0.2 %; Hematocrit (blood only) 56.7 % (34.1-44.9); Hemoglobin 19.1 g/dl (12.0-16.0); Immature Granulocytes # (auto) 0.04 K/uL (0.00-0.02); Immature Granulocytes % (auto) 0.4 %; Lymphocytes # (auto) 0.76 K/uL (1.2-3.4); Lymphocytes % (auto) 8.4 %; Mean Corpuscular Hemoglobin 35.2 pg (25.0-34.0); Mean Corpuscular Hgb Conc 33.7 g/dL (32.0-36.0); Mean Corpuscular Volume 104.4 fL (80.0-100.0); Mean Platelet Volume 10.8 fL (9.4-12.3); Monocytes # (auto) 0.27 K/uL (0.24-0.82); Neutrophils # (auto) 7.97 K/uL (1.4-6.5); Platelet Count 185 K/uL (130-400); RDW Coefficient of Variation 13.8 % (11.5-14.5); RDW Standard Deviation 53.4 fL (36.4-46.3); Red Blood Count 5.43 M/uL (3.93-5.22); White Blood Count 9.06 K/ul (4.8-10.8)
[2022-08-28 04:48] LABS: Albumin Globulin Ratio 1.7 (0.9-2); Albumin Level 4.1 gm/dl (3.4-5.0); BUN Creatinine Ratio 16.7 (10-20); Bilirubin,Total 1.2 mg/dl (0.2-1.0); Calcium 9.6 mg/dl (8.5-10.1); Creatinine Clr Calc Pharmacy 137.3 ml/min; Est GFR (African American) 131.6 ml/min; Est GFR (Non-African American) 113.6 ml/min; Globulin 2.4 gm/dl (2.5-4.0); Potassium 3.7 mmol/L (3.5-5.1); Total Protein 6.5 gm/dl (6.0-8.3)
--- NOTE | 2022-08-28 07:01 | Electrocardiogram Report ---
Test Reason : Blood Pressure : / mmHG Vent. Rate : 066 BPM Atrial Rate : 066 BPM P-R Int : 148 ms QRS Dur : 056 ms QT Int : 410 ms P-R-T Axes : 070 -01 052 degrees QTc Int : 429 ms Normal sinus rhythm Possible Left atrial enlargement Possible Anteroseptal infarct (cited on or before 28-APR-2022) Abnormal ECG When compared with ECG of 28-APR-2022 13:57, Questionable change in initial forces of Septal leads T wave inversion now evident in Anterior leads Confirmed by Hang Romero ([id number]) on 08/28/2022 7:01:19 AM Referred By: REFERRED SELF Confirmed By:Hang Romero
[2022-08-28] MEDS: ALBUT/IPRATROP 3MG/0.5MG NEB 3 ML VIAL NEB SCH ×2 (07:24→10:26)
[2022-08-28] MEDS: oxyCODONE HCL 15 MG TABCR (OxyCONTIN) PO SCH (08:06)
[2022-08-28] MEDS: NICOTINE 21 MG/24 HR TDSY TD SCH (08:06)
[2022-08-28] MEDS: amLODIPine BESYLATE 5 MG TAB PO SCH (08:06)
[2022-08-28] MEDS: PROPRANOLOL HCL 60 MG LA CAP PO SCH (08:07)
[2022-08-28] MEDS: DOCUSATE SODIUM 100 MG CAP PO SCH (08:07)
[2022-08-28] MEDS: methylPREDNISolone 40 MG in SYRINGE 0 ML IV SCH (08:08)
[2022-08-28] MEDS: DOXYCYCLINE HYCLATE 100 MG CAP PO SCH (08:08)
[2022-08-28] MEDS: PREGABALIN 75 MG CAP PO SCH (08:12)
[2022-08-28] MEDS ORDERED: PANTOprazole 40 MG TAB PO SCH (09:00)
[2022-08-28] MEDS ORDERED: DULoxetine HCL 60 MG CAP PO SCH (09:00)
--- NOTE | 2022-08-28 10:38 | Electrocardiogram Report ---
Test Reason : Blood Pressure : / mmHG Vent. Rate : 066 BPM Atrial Rate : 066 BPM P-R Int : 152 ms QRS Dur : 070 ms QT Int : 446 ms P-R-T Axes : 056 063 032 degrees QTc Int : 467 ms Normal sinus rhythm Possible Old Anterior infarct (cited on or before 28-APR-2022) Abnormal ECG When compared with ECG of 27-AUG-2022 08:37, T wave inversion no longer evident in Anteroseptal leads Confirmed by Freedom Mccauley ([id number]) on 08/28/2022 10:38:04 AM Referred By: REFERRED SELF Confirmed By:Freedom Mccauley
--- NOTE | 2022-08-28 12:15 | Discharge Summary ---
Discharge Summary Date of Service August 28, 2022 Notes For Next Care Provider Continue management of hypertension Please titrate down patient's opioids Needs follow up with Pulm for PFT Continue to encourage smoking cessation Medication Changes From Visit Prednisone 40mg daily for 3 days Admission HPI Per Admitting Provider Patient is 51-year-old female with PMH fibromyalgia, chronic pain syndrome, migraine GONZÁLES, tobacco abuse, erythrocytosis, HTN, depression, GERD presented to ER with c/o GONZÁLES. History obtained from patient, patient's daughter, and chart review. Patient states that GONZÁLES started last night. Describes as occipital region with associated photophobia, phonophobia, nausea and dry heaving. Also c/o diplopia which is normal when she has GONZÁLES's. She feels like this is like her prior GONZÁLES's. Also states feels generalized weakness. Tried ibuprofen, Imitrex this morning without relief and can to ER. Patients daughter states she seems confused today. Reports feeling SOB x 1 day. Chronic cough, sometimes productive white sputum without recent worsening. Reports feels cold but denies known fever. Denies chest pain. On chronic OxyContin and oxycodone. Daughter does not believe patient had narcotics today, but thinks took yesterday. Patient states ran out of oxycodone, however patient's daughter states she thought someone picked it up from the pharmacy for patient. Patient states she is having a hard time remembering. Denies fever/chills, diaphoresis, hemoptysis, hematemesis, constipation, diarrhea, syncope, vision loss, neck pain, orthopnea, palpitations, sore throat, choking, otalgia, rhinorrhea, abdominal pain, paresthesias, extremity edema, rashes, urinary symptoms. Denies other drug use. PDMP reviewed. oxycodone 30 mg tablets quantity 60 filled on 08/19/2022. OxyContin ER 60 mg Quantity 60 filled on 08/25/2022. Pregabalin 75 mg capsules. Quantity 90. Filled on 08/22/2022. Oxycodone 30 mg tab quantity 60 filled on 08/19/2022. OxyContin ER 60 mg tablet. Quantity 11 filled on 08/14/2022 and 08/07/2022. Admission Exam Per Admitting Provider General: no distress, WDWN Head: normocephalic, atraumatic Eyes: PERRL, EOM's intact, conjunctiva non-injected, anicteric ENT: normal inspection external ears, nose, mucous membranes moist Neck: supple, trachea midline Lungs: patient with poor respiratory effort, diminished breath sounds, otherwise appear clear, no respiratory distress on current 6L oxymask CV: RRR, no JVD, no pretibial edema Abd: normal BS, soft, non-tender Ext: no cyanosis, no calf tenderness Neuro: Alert, oriented to person, place, thinks its day. no focal deficits noted, normal affect Skin: warm, dry Principal Dx & Hospital Course #1 = Principal Diagnosis (1) Headache: (2) Migraine: 51-year-old female with PMH fibromyalgia, chronic pain syndrome, migraine GONZÁLES, tobacco abuse, erythrocytosis, HTN, depression, GERD presented to ER with c/o GONZÁLES x 1 day with photophobia, phonophobia, N/V, diplopia. Took ibuprofen and imitrex without relief. In ER given ER IV Tylenol, Compazine, Benadryl, Phenergan, Dilaudid Patient reports continued headache. Was noted to be confused in ER. Could be related to meds CT head negative Patient's migraine is resolved this morning Currently back to baseline (3) Hypoxia: (4) COPD exacerbation: In ER patient found to be hypoxic on room air at 79%. Increased to 95% on 6L oxymask Reports chronic white productive cough without worsening. Reports SOB x 1 day. Denies CP WBC: 11.5, Lactate WNL, negative procalcitonin. Negative Covid-19, influenza and RSV PCR. CXR: Emphysema. Mild bibasilar airspace opacities could represent atelectasis versus a mild infectious/inflammatory pneumonitis. Clinical correlation will be required In ER given dexamethasone 10mg IV, doxycycline IV, albuterol neb Of note, she was hypoxic in ER visit in 04/2022. Patient was started on solumedrol Respiratory symptoms improved She was weaned off oxygen Discharged on prednisone 40mg for 3 more days to complete treatment Continue home montelukast (5) Abnormal EKG: EKG inverted T waves septal, V3. Q waves septal and inferior that were seen on prior EKG Denies CP. Troponins were negative (6) HTN (hypertension): Continue amlodipine, propranolol (7) Chronic pain disorder: (8) Fibromyalgia: PDMP reviewed. oxycodone 30 mg tablets quantity 60 filled on 08/19/2022. OxyContin ER 60 mg Quantity 60 filled on 08/25/2022. Pregabalin 75 mg capsules. Quantity 90. Filled on 08/22/2022. Urine drug screen +opiates, +marijuana Counseled on side effects of opioids Advised to quit marijuana and to use meds as prescribed PCP to work on titrating down opioids (9) Depression: Continue duloxetine (10) GERD (gastroesophageal reflux disease): Continue PPI (11) Tobacco abuse: Counseled on smoking cessation as she smokes 1ppd Nicotine patch ordered (12) Erythrocytosis: Following with [facility] hemetology. Negative gen panel so polycythemia vera unlikely Was to have sleep study to R/O ALEKSANDR. Has not had completed yet Discharge Exam Constitutional + well hydrated; no acute distress Eyes PERRL, conjunctivae normal, anicteric sclerae ENMT external ear and nose normal, oropharynx normal Respiratory normal respiratory effort; no respiratory distress Auscultation: + diminished lung sounds Cardiovascular RRR, no murmur, no edema Gastrointestinal (Abdomen) normal bowel sounds, soft, nontender, no hepatosplenomegaly Musculoskeletal no cyanosis or clubbing, extremities motor strength 5/5 Neurologic PERRL, EOMI, accommodation nl, no face palsy, no dysarthria Psychiatric A+Ox3, euthymic affect Updated Medication List Medication Instructions Recorded Confirmed Type amlodipine 5 mg tablet 5 mg PO DAILY 04/28/22 08/27/22 History duloxetine 60 mg capsule,delayed 120 mg PO DAILY 04/28/22 08/27/22 History release galcanezumab-gnlm 120 mg/mL 120 mg subcut MONTHLY 04/28/22 08/27/22 History subcutaneous pen injector (Emgality Pen) montelukast 10 mg tablet 10 mg PO HS 04/28/22 08/27/22 History (Singulair) omeprazole 40 mg capsule,delayed 40 mg PO DAILY 04/28/22 08/27/22 History release ondansetron 4 mg disintegrating 4 mg PO Q6H PRN nausea and 04/28/22 08/27/22 Rx tablet vomiting #14 tabs oxycodone 30 mg tablet 30 mg PO BID PRN Breakthrough Pain 04/28/22 08/27/22 History pregabalin 75 mg capsule 75 mg PO TID 04/28/22 08/27/22 History propranolol 120 mg capsule,24 120 mg PO DAILY 04/28/22 08/27/22 History hr,extended release sumatriptan succinate 100 mg tablet 100 mg PO UD PRN Headache 04/28/22 08/27/22 History valacyclovir 1 gram tablet 1,000 mg PO UD 04/28/22 08/27/22 History ipratropium 20 mcg-albuterol 100 2 puff inhalation Q6H PRN 08/27/22 08/27/22 History mcg/actuation mist for inhalation Shortness Of Breath Or Wheezing (Combivent Respimat) oxycodone 60 mg tablet,crush 60 mg PO BID 08/27/22 08/27/22 History resistant,extended release 12 hr (OxyContin) nicotine 21 mg/24 hr daily 21 mg transdermal QAM #14 ea 08/28/22 Rx transdermal patch (Nicoderm CQ) prednisone 20 mg tablet 40 mg PO DAILY 3 days #6 tabs 08/28/22 Rx Hospital Stay Data Consultations 08/27/22 11:59 ED Decision to Admit Stat Diagnostic Imagining Performed 08/27/22 13:10 CT head/brain wo con Stat Chest X-Ray 08/27/22 08:35 SINGLE VIEW CHEST CLINICAL HISTORY: Cough. Sepsis. FINDINGS: An AP, portable, upright chest radiograph is compared to chest x-ray and chest CT dated 04/28/2022. The cardiomediastinal silhouette is top normal for projection. Emphysema and chronic interstitial thickening is similar to previous. There are mild bibasilar airspace opacities. No pleural effusion or pneumothorax is seen. The bony thorax is grossly intact. Fusion hardware is seen in the lower cervical spine. IMPRESSION: 1. Emphysema. 2. Mild bibasilar airspace opacities could represent atelectasis versus a mild infectious/inflammatory pneumonitis. Clinical correlation will be required Pending Results Patient Have Any Pending Studies at Discharge: No Discharge Instructions Given to Patient (Per Discharging Provider) Mrs Marker. You came to the hospital complaining of migraine headache. You were also noted to have low oxygen level and evaluation noted possible COPD exacerbation. You were started on treatment and your symptoms resolved. Please quit smoking as we discussed. You are being discharged on 3 more days of prednisone to complete treatment. Please ensure follow up with Pulmonology outpatient for pulmonary function test. Please follow up with your Primary Doctor. Total Time Total Time Spent Total Time Spent (In Minutes): 45
[2022-08-29 07:28] LABS: Estimated Average Glucose 117 mg/dl; Hemoglobin A1C 5.7 % (4.5-5.6)
[2022-08-31 08:42] LABS: Codeine Urine NEGATIVE ng/mL (<50); Hydrocodone Urine NEGATIVE ng/mL (<50); Hydromor Urine NEGATIVE ng/mL (<50); Marijuana Quant, GCMS Urine 95 ng/mL (<5); Morphine Urine NEGATIVE ng/mL (<50); Norhydrocodone Conf Ur NEGATIVE ng/mL (<50); Noroxycodone Urine 4050 ng/mL (<50); Oxycodone Urine 807 ng/mL (<50); Oxymorph Urine 3400 ng/mL (<50)
== END 2022-08-28 14:17 | disposition home or self-care (01) | DRG 103 ==
LOC: ED 08:19 → SUATTDRO 13:09 → EDINP 13:09 → 2N 15:24